=== PATIENT | male | born 1960 | race Caucasian/White ===

== ENCOUNTER 2016-05-31 15:16 | Emergency (ER) | payer OTHER ==
[~2016-05-31] VITALS: Ht 165.1 cm; Wt 90.7 kg
[2016-05-31 15:20] VITALS: BP 131/91; PULSE 105; RESP 16; TEMP 97; O2SAT 96
--- NOTE | 2016-05-31 15:29 | NUR ---
Patient triaged and placed in waiting room. Patient appears in no acute distress at this time. Accompanied by SON, awaiting available bed, and MD notified of need for MSE.
[2016-05-31] MEDS ORDERED: KETOROLAC TROMETHAMINE 30 MG VIAL IVP ONE ×2 (15:45→17:30)
[2016-05-31] MEDS ORDERED: NACL 0.9% 1,000 ML IV ONE (15:45)
[2016-05-31] MEDS ORDERED: ONDANSETRON HCL 4 MG/2 ML VIAL IVP ONE ×3 (15:45→19:45)
--- NOTE | 2016-05-31 15:47 | NUR ---
Patient to ER bed 4 to gown for evaluation. Side rails up. Report given to HEATHER WATTS.
--- NOTE | 2016-05-31 16:03 | NUR ---
c/o left testicular pain radiating to left side back.pain with urination
--- NOTE | 2016-05-31 16:05 | NUR ---
ER at bedside examining patient.
--- NOTE | 2016-05-31 16:49 | NUR ---
# 22 gauge angiocath placed to rac. Use of asceptic technique. Opsite placed over site. Blood return noted. Blood for lab drawn from site. Flushed with 10 cc of normal saline. No evidence of infiltration noted. Patient tolerated well.
[2016-05-31 16:52] LABS: BASOPHILS % (AUTO) 0.3 % (0.0-2.0); EOSINOPHILS % (AUTO) 0.5 % (0.0-4.0); HEMATOCRIT 37.2 % (36-54); HEMOGLOBIN 12.7 g/dL (14.0-18.0); LYMPHOCYTES # (AUTO) 2.5 K/uL (1.0-5.5); LYMPHOCYTES % (AUTO) 26.4 % (20.5-51.5); MEAN CORPUSCULAR HEMOGLOBIN 29 pg (27-31); MEAN CORPUSCULAR HGB CONC 34 % (32-36); MEAN CORPUSCULAR VOLUME 86 fL (79.0-98.0); MONOCYTES # (AUTO) 0.7 K/uL (0.0-1.0); NEUTROPHILS # (AUTO) 6.2 K/uL (1.8-7.7); NEUTROPHILS % (AUTO) 65.8 % (40.0-70.0); PLATELET COUNT (AUTO) 277 K/uL (130-430); RED BLOOD CELL COUNT(AUTO) 4.33 MIL/uL (4.2-6.2); RED CELL DISTRIBUTION WIDTH 12.9 % (9.0-15.0); WHITE BLOOD COUNT (AUTO) 9.4 K/uL (4.8-10.8)
[2016-05-31 16:56] LABS: CALCIUM 8.5 mg/dL (8.4-11.0); CREATININE 0.97 mg/dL (0.55-1.30); POTASSIUM 4.1 mmol/L (3.5-5.1)
[2016-05-31 16:59] LABS: BILIRUBIN,URINE NEGATIVE (NEGATIVE); BLOOD, URINE NEGATIVE (NEGATIVE); CLARITY/URINE CLEAR (CLEAR); COLOR,URINE YELLOW (YELLOW); GLUCOSE,URINE NEGATIVE (NEGATIVE); KETONES,URINE NEGATIVE (NEGATIVE); LEUKOCYTE ESTERASE ,URINE NEGATIVE (NEGATIVE); NITRITE, URINE NEGATIVE (NEGATIVE); PROTEIN URINE NEGATIVE (NEGATIVE); UROBILINOGEN,URINE 0.2 (0.2-1.0)
[2016-05-31 17:00] LABS: ALBUMIN 3.6 g/dL (3.4-4.8); C-REACTIVE PROTEIN QUANT 0.6 mg/dL (0-0.5); TOTAL BILIRUBIN 0.4 mg/dL (0.0-1.0); TOTAL PROTEIN, SERUM 6.8 g/dL (6.4-8.3)
--- NOTE | 2016-05-31 17:12 | NUR ---
transport to ultrasound escorted by cardiac technician
[2016-05-31] MEDS ORDERED: MORPHINE 4 MG/ML INJ. SYRINGE IVP ONE (17:30)
--- NOTE | 2016-05-31 18:08 | NUR ---
medicated per md's order
--- NOTE | 2016-05-31 19:11 | NUR ---
Admission Note Received patient from ER with diagnosis of testicular infection. Initial Plan of Care discussed-patient verbalized understanding. Family at bedside. Oriented to room, call light, pain management and safety.
--- NOTE | 2016-05-31 19:16 | NUR ---
hand off to [facility] shift lead Woody WATTS
--- NOTE | 2016-05-31 19:18 | NUR ---
NOTES PLEASE DISREGARD PREVIOUS ADMISSION NOTES RE. TO CHANGES IN ADMISSION STATUS.
--- NOTE | 2016-05-31 19:18 | NUR ---
Pt came in for L testicular pain. States its been going on for three weeks and today it was unbearable. Pt's pain 11/02. AAOX4. Will continue to monitor. No other injuries or complaints mentioned/noted. No distress noted.
[2016-05-31] MEDS ORDERED: MORPHINE SULFATE 10 MG/ML VIAL IVP ONE (19:45)
[2016-05-31 22:05] VITALS: BP 128/70; PULSE 83; RESP 18; TEMP 97; O2SAT 99
--- NOTE | 2016-05-31 22:05 | NUR ---
Patient given written and verbal discharge instructions and verbalizes understanding. ER MD discussed with patient the results and treatment provided. Given copies of tests performed in ER. Patient in stable condition. ID arm band removed. IV catheter removed intact and dressing applied, no active bleeding. Rx of ibuprofen, levaquin, and norco given. Patient educated on pain management and to follow up with PMD. Pain Scale 0/10. Opportunity for questions provided and answered.
== END 2016-05-31 22:05 | disposition home or self-care (01) ==
LOC: SED 15:16
DX: N45.2 Orchitis (principal); E11.9 Type 2 diabetes mellitus without complications
CPT/HCPCS: 36415; 76870; 80053; 81003; 83605; 85025; 86140; 96365; 96375; 96376; 99285; J1885; J1956; J2270 ×2; J2405